=== PATIENT | male | born 1980 | race Caucasian/White ===

== ENCOUNTER 2025-07-19 23:37 | Emergency (ER) | payer OTHER, SELFPAY ==
[2025-07-19 23:51] VITALS: BP 132/86
[2025-07-20 00:37] LABS: COVID-19 Antigen Negative (Negative)
--- NOTE | 2025-07-20 02:07 | ED.GENMED ---
History of Present Illness
General
Chief Complaint: Throat Problem
Source: patient
Exam Limitations: none
Time Seen by Provider: 07/20/25 01:21
Nursing documentation reviewed up to this point in time: agreed with
History of Present Illness
History of Present Illness:
45-year-old male with no chronic medical problems, smoker
Here with 5 days of URI symptoms with a sore throat, dry cough, subjective fever, swollen glands. Patient says he is having pretty severe pain when he swallows even any liquids. He is taking Tylenol and Motrin [id number]. His last dose was
around 7 PM of both a combo Tylenol Motrin medication. Patient has not had any change to his voice, vomiting, diarrhea, unilateral sore throat. He thinks he had a peritonsillar abscess in the past but that was 20 years ago.
Past History
Past History
ED Past Medical History: None
ED Past Surgical History: None
Social History
Tobacco: Smoker
Alcohol: None
Drug: None
Personal: Single
Living: with family
Review of Systems
Review of Systems
Allergies reviewed?: Yes
All Other Systems: Not applicable
Phy Exam
Physical Exam
Physical Exam:
GENERAL: Alert , in no apparent distress tolerating secretions
EYE: pupils equal and reactive
NECK: Supple, bilateral tonsillar lymphadenopathy tender
ENT: b/l TM s clear, severe pharynx erythematous tonsillar hypertrophy without exudate,
CARDIAC: Regular rate and rhythm, no edema
LUNGS: Clear breath sounds bilaterally, no acute respiratory distress, no wheezes/rales/rhonchi, occ cough
ABDOMEN: Soft, without focal tenderness, no r/g, no cvat, normal bowel sounds
NEUROLOGICAL: Alert and oriented, no focal neuro deficits
SKIN: Warm and dry, skin intact.
MUSCULOSKELETAL: No edema, well perfused.
PSYCH: Normal and appropriate interaction.
Course
Orders/Labs/Results
Orders:
Orders
07/19/25 23:58
COVID-19 Antigen Urgent
Source: Nasal Swab
Influenza A+B Rapid Molecular Urgent
KADY Source: Nasal Swab
Specimen Description:
Date Specimen was Collected: 07/19/25
Time Specimen was Collected: 23:59
Rapid Strep Group A Urgent
KADY Source: Throat/Pharynx
Specimen Description:
Date Specimen was Collected: 07/19/25
Time Specimen was Collected: 23:59
07/20/25 01:48
0.9% Sodium Chloride 1000 ml [Nss] 1,000 ml IV BOLUS
Dexamethasone Sod Phosphate [Decadron] 10 mg IV NOW STA
Ketorolac [Toradol] 30 mg IV NOW STA
CR Chest - 2 Views Urgent
Comment:
Reason For Exam: cough
07/20/25 01:49
Acetaminophen 1000MG/100Ml [Ofirmev] 1,000 mg in 100 ml IV ONCE
Acetaminophen IV Indication:: ED Narcotic Naive Pt-ONCE
07/20/25 03:03
Complete Blood Count/With Diff Urgent
Comprehensive Metabolic Panel Urgent
Monotest Urgent
07/20/25 04:12
Clindamycin HCl [Cleocin] 300 mg PO NOW STA
Abnormal Lab Results
07/20/25
03:03
WBC 18.2 H 10^3/uL
(4.8-10.8)
Abs Immat Gran (auto) 0.1 H 10^3/uL
(0-0.05)
Absolute Neuts (auto) 13.8 H 10^3/uL
(1.4-6.5)
Absolute Monos (auto) 1.4 H 10^3/uL
(0.1-0.6)
Immature Gran % 0.6 H %
(0-0.5)
Neutrophils % 76.2 H %
(42.2-75.2)
Lymphocytes % 14.6 L %
(20.5-51.1)
Carbon Dioxide 21 L mmol/L
(22-30)
Glucose 100 H mg/dl
(70-99)
07/20/25 03:03
07/20/25 03:03
Vital Signs
Initial and Last Documented VS:
Initial Vital Signs
Temp Pulse Resp BP Pulse Ox
37.3 C 102 18 132/86 97
07/19/25 23:51 07/19/25 23:51 07/19/25 23:51 07/19/25 23:51 07/19/25 23:51
Last Documented Vital Signs
Temp Pulse Resp BP Pulse Ox
37.3 C 87 21 115/88 95
07/19/25 23:51 07/20/25 04:36 07/20/25 04:36 07/20/25 04:36 07/20/25 04:36
MDM/Problems Addressed
Differential Diagnosis Includes:
[place], flu, COVID, strep, viral URI, tonsillitis, [employer]
MDM/Problems Addressed:
45-year-old male with history of smoking, here for URI symptoms for a week. Subjective chills and fever, pretty painful sore throat which is worse with swollen glands last couple days. Having trouble tolerating liquids so he feels dehydrated. Dry
cough.
On exam he is afebrile but his temp was 99.7 for me. He has moderate to severe pharyngeal erythema without exudate, symmetric tonsils 3+, no uvular deviation, no uvular edema, able to tolerate secretions, not tripoding, moving his neck normally,
tender bilateral lymphadenopathy
Dry cough with some wheezing on the left side
Will give IV fluids, pain control, steroids, chest x-ray
07/20/2025 0417 AM
Patient reassessed, pain is much better after steroids, Toradol and Tylenol. He had IV fluids. He white count is 18,000, it was drawn after the steroids but likely is related to the infection. His rapid strep flu and COVID were all negative. His
mono was negative. Chest x-ray independently read was clear. Considering his history of [employer] in the past and strep throat, with slightly worsening pain on the left side of his throat now without obvious signs of [employer] I will cover with antibiotics.
*Pulse Oximetry
SaO2: 97
Oxygen Mode of Delivery: Room air
Patient hypoxic: no (95)
*Critical Care Note
Total Time (30-74mins, 75-104mins- exclusive of procedures): Not Applicable
ED Attending Note
-
Portions of this chart may have been created with voice recognition software.� Occasional wrong word or��sound alike� substitutions may have occurred due to the inherent limitations of voice recognition software.
Discharge Plan
Departure
Patient Disposition: Home (Routine Discharge)
Date of Disposition: 07/20/25
Time of Disposition: 04:28
Patient with high blood pressure during this ER visit?: No
Condition: Fair
Covid-19: Negative COVID-19
Discharge Problem:
Acute tonsillitis
Instructions: Sore throat in adults - ED (DC)
Prescriptions:
New
clindamycin HCl [Cleocin HCl] 300 mg capsule
300 mg PO Q6H Qty: 28 0RF
prednisone 50 mg tablet
50 mg PO DAILY Qty: 4 0RF
Referrals:
NONE,* [Family Provider, Internal Medicine]
Activity Restrictions/Additional Instructions:
Your strep and COVID and flu and mono are all negative
But I am treating you just in case you do have strep throat or an early abscess in your tonsil. Take clindamycin 4 times a day for 7 days. Use the steroids once a day starting this evening for the next 4 days. Take Tylenol every 6 hours for pain.
You can also use Motrin 2 times a day for pain. Suck on lozenges and use popsicles etc. Stay hydrated. Return for any concerns like inability to swallow, muffling of her voice, trouble breathing, temp trouble turning her neck, high fever etc.
Interventions
Interventions:
*General Assessment Last Done: 07/20/25 03:50
*Neglect/Abuse Screening Last Done: 07/20/25 03:50
*ED COVID-19 Vaccine History Last Done: 07/20/25 04:00
*ED Influenza Vaccine History Last Done: 07/20/25 04:00
[facility] Fall Risk Assessment Tool Last Done: 07/20/25 03:49
*Risk Screen - Suicide (C-SSRS) Last Done: 07/19/25 23:51
*Nursing Disposition Last Done: 07/20/25 04:36
ED-EENT Assessment Last Done: 07/20/25 03:00
ED- Pulmonary Assessment Last Done: 07/20/25 03:00
Discharge Date and Time
Discharge Date/Time: 07/20/25 04:37
Print Language: SINHALA
[2025-07-20] MEDS: NSS 1000 IV (02:28)
[2025-07-20] MEDS: TORADOL 30 MG IV (02:29)
[2025-07-20] MEDS: OFIRMEV 100 IV (02:30)
[2025-07-20] MEDS: DECADRON 10 MG IV (02:30)
[2025-07-20 03:16] VITALS: BP 124/74
[2025-07-20 03:26] LABS: Hematocrit 42.9 % (39.0-52.0); Hemoglobin 14.6 g/dL (13.0-18.0); Mean Corp Hgb Conc. 34.0 g/dL (33.0-37.0); Mean Corpuscular Volume 87.0 fL (80.0-94.0); Nucleated Red Blood Cells % 0 % (-); Platelet Count 295 10^3/uL (130-400); Red Cell Dist. Width 12.2 % (11.5-14.5)
[2025-07-20 03:50] LABS: ALT (SGPT) 20 U/L (0-50); AST (SGOT) 17 U/L (17-59); Albumin 4.4 g/dl (3.5-5.0); Alkaline Phosphatase 73 U/L (38-126); Blood Urea Nitrogen 13 mg/dl (9-20); Calcium 9.6 mg/dl (8.4-10.2); Carbon Dioxide 21 mmol/L (22-30); Chloride 107 mmol/L (98-107); Glucose 100 mg/dl (70-99); Potassium 4.2 mmol/L (3.5-5.1); Sodium 140 mmol/L (135-145); Total Protein 7.4 g/dl (6.3-8.2); eGFR > 60.00
[2025-07-20 04:00] VITALS: BP 115/88
[2025-07-20] MEDS: CLEOCIN 300 MG PO (04:22)
[2025-07-20 04:36] VITALS: BP 115/88
== END 2025-07-20 04:37 | disposition home or self-care (01) ==
LOC: EMR 23:37
PROVIDERS: Emergency Medicine; Physician Assistant; EMERGENCY PHYSICIAN Emergency Medicine
DX: J03.90 Acute tonsillitis, unspecified (principal); R05.9 Cough, unspecified; F17.200 Nicotine dependence, unspecified, uncomplicated; Z11.52 Encounter for screening for COVID-19
CPT/HCPCS: 99284; 96374; 96375; 71046; 80053; 85025; 86308; 87070; 87502; 87811; 87880